=== PATIENT | female | born 1940 | race Caucasian/White ===

== ENCOUNTER 2018-12-17 13:11 | Inpatient (IN) | payer MEDICARE ==
[~2018-12-17] VITALS: Ht 167.6 cm; Wt 75.7 kg
[~2018-12-17 13:11] MED LIST: SYMBICORT 160-4.6 GM; Z.0.ACTONEL150 MG; Z.0.ALIGN4 MG; Z.0.ALLEGRA180 MG; Z.0.AMARYL2 MG; Z.0.FLOVENT DISKUS50; Z.0.LEXAPRO10 MG; Z.0.LIPITOR20 MG; Z.0.LISINOPRIL2.5 MG PO; Z.0.NAPROXEN500 MG; Z.0.PROTONIX40 MG; Z.0.XANAX0.5 MG; [UNRECOGNIZED DRUG - OTHER]; nexium
--- OUTSIDE RECORDS SUMMARY | 2018-12-17 13:14 | XMS REPORT ---
Author Author [facility] Address Unknown Phone Unavailable Care Team Providers Care Social Security Specialist Name Role Phone Unavailable Unavailable Payers Payer Name Policy Type Policy Number Effective Date Expiration Date Problems This patient has no known problems. Allergies, Adverse Reactions, Alerts Allergy Name Allergy Type Status Severity Reaction(s) Onset Date Inactive Date Treating Clinician Comments No Known Allergies DA Active U 2017-06-12 00:00:00 Medications This patient has no known medications. Results Test Description Test Time Test Comments Text Results Atomic Results Result Comments GLUBED 2018-11-04 11:23:00 GLUBED (test code=GLUBED) 126 mg/dL 74-106 Performed by certified commercial front load operator at [facility] - XR CHEST 2 [id number] 10:50:00 Name: AMANDA WILDER [facility] : 1940 Age/S:78 /F [address] [facility] Unit#:[id number] Loc: [place] [address] Phys: Michel Prado MD Dis Date: PHONE #: [phone] Status: REG ER FAX #: [phone] Exam Date: 11/04/2018 Reason: cough EXAMS: CPT CODE: [id number] XR CHEST 2 V 27508 HISTORY: Cough. COMPARISON: March 01, 2018. Extensive scarring and bullous changes with upper lobe predominance. Apical pleural thickening demonstrating no change. No acute infiltrates, effusion or congestion. Cardiac silhouette is mildly enlarged. DJD of the dorsal spine. IMPRESSION: No acute infiltrates, effusion or congestion. COPD and scarring is stable. at 1050 Reported and signed by: Fran Sharma M.D. CC: Michel Prado MD Technologist: Nancy Byrd Trnscrpt Data: 11/04/2018 (3610) [email or web address] Orig Print D/T: S: 11/04/2018 (5482) PAGE 1 Signed Report COMPREHENSIVE METABOLIC [id number] 10:19:00* Test Item Value Reference Range Comments SODIUM (test code=NA) 139 mmol/L 136-145 POTASSIUM (test code=K) 3.6 mmol/L 3.5-5.1 CHLORIDE (test code=CL) 102 mmol/L 101-109 CARBON DIOXIDE (test code=CO2) 27.3 mmol/L 21-32 ANION GAP (test code=GAP) 13 mmol/L 10-20 GLUCOSE (test code=GLU) 42 mg/dL 74-106 Results called to [id number] by LAUREANO 11/04/18 1016Critical results verified and read back by Nurse? Y BLOOD UREA NITROGEN (test code=BUN) 15 mg/dL 3-21 CREATININE (test code=CREAT) 1.01 mg/dL 0.55-1.3 BUN/CREATININE RATIO (test code=BUN/CREA) 14.9 10-20 TOTAL PROTEIN (test code=PROT) 6.6 g/dL 6.5-8.4 ALBUMIN (test code=ALB) 3.2 g/dL 3.4-4.8 GLOBULIN (test code=GLOB) 3.4 G/DL 1-10 ALBUMIN/GLOBULIN RATIO (test code=A/G) 0.94 RATIO 0.75-1.50 CALCIUM (test code=CA) 8.1 mg/dL 8.4-10.2 BILIRUBIN TOTAL (test code=BILT) 0.30 mg/dL 0.0-1.0 SGOT/AST (test code=AST) 19 U/L 6-32 SGPT/ALT (test code=ALT) 16 U/L 12-78 Note: Change in REFERENCE RANGE due to new reagent method. ALKALINE PHOSPHATASE TOTAL (test code=ALKP) 79 U/L 38-126 COMPREHENSIVE METABOLIC [id number] 10:16:00* Test Item Value Reference Range Comments SODIUM (test code=NA) 139 mmol/L 136-145 POTASSIUM (test code=K) 3.6 mmol/L 3.5-5.1 CHLORIDE (test code=CL) 102 mmol/L 101-109 CARBON DIOXIDE (test code=CO2) 27.3 mmol/L 21-32 ANION GAP (test code=GAP) 13 mmol/L 10-20 GLUCOSE (test code=GLU) 42 mg/dL 74-106 Results called to [id number] by LAUREANO 11/04/18 1016Critical results verified and read back by Nurse? Y BLOOD UREA NITROGEN (test code=BUN) 15 mg/dL 3-21 CREATININE (test code=CREAT) 1.01 mg/dL 0.55-1.3 BUN/CREATININE RATIO (test code=BUN/CREA) 14.9 10-20 TOTAL PROTEIN (test code=PROT) gram/dL 6.4-8.2 ALBUMIN (test code=ALB) g/dL 3.4-5.0 GLOBULIN (test code=GLOB) g/dL 2.7-4.2 ALBUMIN/GLOBULIN RATIO (test code=A/G) 0.75-1.50 CALCIUM (test code=CA) 8.1 mg/dL 8.4-10.2 BILIRUBIN TOTAL (test code=BILT) mg/dL 0.2-1.2 SGOT/AST (test code=AST) IUnit/L 15-37 SGPT/ALT (test code=ALT) U/L 10-69 ALKALINE PHOSPHATASE TOTAL (test code=ALKP) IUnit/L 45-117 CBC W/AUTO [id number] 10:02:00* Test Item Value Reference Range Comments WHITE BLOOD CELL (test code=WBC) 5.6 K/mm3 4.5-12.5 RED BLOOD CELL (test code=RBC) 3.69 mill/mm3 3.7-5.2 HEMOGLOBIN (test code=HGB) 11.3 gram/dL 11.5-15.5 HEMATOCRIT (test code=HCT) 35.1 % 36.0-46.0 MEAN CELL VOLUME (test code=MCV) 95.1 fL 80-98 MEAN CELL HGB (test code=MCH) 30.6 picogram 27.0-33.0 MEAN CELL HGB CONCETRATION (test code=MCHC) 32.2 gram/dL 33.0-36.0 RED CELL DISTRIBUTION WIDTH (test code=RDW) 13.0 % 11.6-16.2 RED CELL DISTRIBUTION WIDTH SD (test code=RDW-SD) 46.5 fL 37.0-51.0 PLATELET COUNT (test code=PLT) 199 K/mm3 150-450 MEAN PLATELET VOLUME (test code=MPV) 9.7 fL 6.7-11.0 NEUTROPHIL % (test code=NT%) 74.8 % 39.0-69.0 LYMPHOCYTE % (test code=LY%) 11.4 % 25.0-55.0 MONOCYTE % (test code=MO%) 12.3 % 0.0-10.0 EOSINOPHIL % (test code=EO%) 0.9 % 0.0-5.0 BASOPHIL % (test code=BA%) 0.4 % 0.0-1.0 NEUTROPHIL # (test code=NT#) 4.21 K/mm3 1.8-7.7 LYMPHOCYTE # (test code=LY#) 0.64 K/mm3 1.0-5.0 MONOCYTE # (test code=MO#) 0.69 K/mm3 0-0.8 EOSINOPHIL # (test code=EO#) 0.05 K/mm3 0.0-0.5 BASOPHIL # (test code=BA#) 0.02 K/mm3 0.0-0.2
--- OUTSIDE RECORDS SUMMARY | 2018-12-17 13:14 | XMS REPORT | Summary of Care ---
Author Author Sheri Cardenas Unknown Address [facility] Phone Unavailable Care Team Providers Care Engineer Sergeant Name Role Phone VAL SARAVIA M.D. Unavailable Unavailable ALISHA LÓPEZ MD Unavailable Unavailable Unavailable Unavailable Functional Status Name Dates Details Functional status health issues are not documented Status: Name Dates Details Cognitive status health issues are not documented Status: Problems Name Dates Details Diabetes (250.00, E11.9) Status: Active Hyperlipidemia (272.4, E78.5) Status: Active Hypertension (401.9, I10) Status: Active Leg weakness (729.89, R29.898) Status: Active PAD (peripheral artery disease) (443.9, I73.9) Status: Active Medications Name Dates Details Carafate 1 GM Oral Tablet TAKE 1 TABLET 4 TIMES DAILY. Active Chantix 1 MG Oral Tablet TAKE DIRECTED PER PACKAGE INSTRUCTIONS. * Refills: 0 Active Protonix 40 MG Oral Tablet Delayed Release TAKE 1 TABLET DAILY * Quantity: 30 Refills: 0 Active Albuterol 90 MCG/ACT AERS INHALE 1 TO 2 PUFFS EVERY 4 TO 6 HOURS NEEDED AND DIRECTED. * Refills: 0 Active Aspirin 81 MG TABS TAKE 1 TABLET DAILY. * Quantity: 60 Refills: 2 Active Atorvastatin Calcium 20 MG Oral Tablet TAKE 1 TABLET AT BEDTIME. * Quantity: 90 Refills: 0 Active Lexapro 10 MG Oral Tablet TAKE 1 TABLET DAILY. * Refills: 0 Active Glimepiride 1 MG Oral Tablet TAKE 1 TABLET TWICE DAILY. * Refills: 0 Active Lisinopril 2.5 MG Oral Tablet TAKE 1 TABLET BY MOUTH DAILY * Quantity: 90 Refills: 3 Active metFORMIN HCl - 500 MG Oral Tablet TAKE 1 TABLET DAILY * Refills: 0 Active Pioglitazone HCl - 15 MG Oral Tablet * Refills: 0 Active rOPINIRole HCl - 0.5 MG Oral Tablet * Refills: 0 Active Clopidogrel Bisulfate 75 MG Oral Tablet * Refills: 0 Active Gabapentin 100 MG TABS * Refills: 0 Active Benadryl 25 MG TABS * Refills: 0 Active Loratadine 10 MG Oral Tablet * Refills: 0 Active Allergies and Adverse Reactions Name Dates Details No Known Drug Allergies (Allergy) Status: Active Past Medical History Name Dates Details Hypertension (401.9, I10) Status: Active History of diabetes mellitus (V12.29, Z86.39) Status: Resolved History of hyperlipidemia (V12.29, Z86.39) Status: Resolved Procedures Procedure Dates Details History of Appendectomy Completed Immunization Name Dates Details Immunizations not documented Family History Name Dates Details Family history of Heart problem (429.9, I51.9) Status: Active Family history of cerebrovascular accident (CVA) (V17.1, Z82.3) Status: Active Family history of CAD (coronary artery disease) (414.00, I25.10) Status: Active Name Dates Details Family history of Heart problem (429.9, I51.9) Status: Active Name Dates Details Family history of cardiomegaly (V17.49, Z82.49) Status: Active Social History Name Dates Details - Status: Name Dates Details Former smoker Vital Signs Date Test Result Details 15-Aug-20188:54 BP Systolic 128 mm[Hg] Status: Comments: Location: LUE; Position: Sitting BP Diastolic 57 mm[Hg] Status: Comments: Location: LUE; Position: Sitting Height 66 in Status: Weight 174.5 lb Status: Body Mass Index Calculated 28.17 kg/m2 Status: Body Surface Area Calculated 1.89 m2 Status: Temperature 97.4 f Status: Comments: Method: Oral Heart Rate 65 /min Status: O2 SAT 97 % Status: Results Date Description Value Details Results not documented Plan of Care Name Dates Details Planned Observations Planned Goals not documented Interventions Provided Follow-ups/Referrals* PTO, FUNMI, Speech Therapy Referral; To Be Done: After 15Aug2018 Plan* PAD w/BLE weakness * * Patient clinical presentation does not indicate need for endovascular treatment. Recommend PT for build muscle strength and deconditioning * * Patient advised to contact IR is symptoms worsen Instructions Name Dates Details Instructions not documented Encounters Appointment; RADIOLOGY, PROVIDER Encounter Diagnosis: Problem not documented On: 15-Aug-2018 8:30
[2018-12-17] MEDS ORDERED: SODIUM CHLORIDE 0.9% 1000ML 1,000 ML IV STA (13:38)
[2018-12-17] MEDS ORDERED: SODIUM CHLORIDE 0.9% 1000ML 500 ML IV STA (13:38)
[2018-12-17 13:54] LABS: BASOPHILS % 0.7 % (0.0-1.0); EOSINOPHILS # (AUTO) 0.1 (0.0-0.4); EOSINOPHILS % 2.5 % (0.0-6.0); HEMATOCRIT 34.8 % (34.2-44.1); HEMOGLOBIN 11.4 g/dL (12.0-16.0); LYMPHOCYTES # (AUTO) 1.3 (1.0-3.2); LYMPHOCYTES % 29.3 % (18.0-39.1); MEAN CORPUSCULAR HEMOGLOBIN 31.1 pg (28-32); MEAN CORPUSCULAR HGB CONC 32.8 g/dL (31-35); MEAN CORPUSCULAR VOLUME 95.1 fL (81-99); MONOCYTES # (AUTO) 0.4 (0.2-0.8); MONOCYTES % 9.2 % (4.4-11.3); NEUTROPHILS # (AUTO) 2.5 (2.1-6.9); NEUTROPHILS % 58.3 % (38.7-80.0); PLATELET COUNT 262 x10e3/uL (140-360); RED BLOOD COUNT 3.66 x10e6/uL (3.6-5.1)
[2018-12-17] MEDS ORDERED: ONDANSETRON HCL INJ 2MG/ML 2ML 2 MG/ML VIAL IV PRN (14:00)
[2018-12-17] MEDS ORDERED: PANTOPRAZOLE 40 MG 10ML VIAL IV NR (14:00)
[2018-12-17] MEDS ORDERED: DEXTROSE 50% SYRINGE 50 ML IV PRN (14:00)
[2018-12-17 14:07] LABS: INR 1.01; PARTIAL THROMBOPLASTIN TIME 25.8 seconds (23.8-35.5); PROTHROMBIN TIME 13.8 seconds (11.9-14.5)
[2018-12-17 14:18] LABS: ALBUMIN 3.6 g/dL (3.5-5.0); ALBUMIN/GLOBULIN RATIO 1.2 (0.8-2.0); ANION GAP 11.9 mmol/L (8-16); CALCIUM 9.9 mg/dL (8.4-10.2); CREATININE, SERUM 1.14 mg/dL (0.57-1.11); MAGNESIUM 1.8 MG/DL (1.3-2.1); POTASSIUM 3.9 mmol/L (3.5-5.1)
--- NOTE | 2018-12-17 14:29 | Diagnostic Imaging Report ---
Chest, 1 view, 12/17/2018. History: Respiratory distress. Comparison: None available. Findings: The cardiomediastinal silhouette and pulmonary vasculature are within normal limits for a portable exam. There is biapical pleural thickening and upper lobe scarring. There is no focal consolidation or pleural effusion. There are no acute osseous or soft tissue abnormalities. Impression: No acute cardiopulmonary abnormality. Signed by: Carlos Kumar on 12/17/2018 2:26 PM
[2018-12-17 14:39] LABS: THYROID STIMULATING HORMONE 0.948 uIU/mL (0.350-4.940)
[2018-12-17] MEDS: FAMOTIDINE 20 MG/2 ML VIAL IV SCH (15:33)
[2018-12-17] MEDS: SODIUM CHLORIDE 0.9% 1000ML 1,000 ML IV SCH (15:33)
--- NOTE | 2018-12-17 15:33 | Diagnostic Imaging Report ---
CT of the chest, PE protocol, with contrast, 12/17/2018. History: Shortness of breath. Comparison: Chest x-ray from earlier today. CT chest 11/28/2011. Technique: Multidetector thin collimation CT scanning of the chest was performed from the level of the apices to the upper abdomen during the pulmonary arterial phase, after intravenous administration of contrast. Coronal and sagittal MIP reformations were obtained. RADIATION DOSE: Total DLP: 510 mGy*cm Dose modulation, iterative reconstruction, and/or weight based adjustment of the mA/kV was utilized to reduce the radiation dose to as low as reasonably achievable. Discussion: Chest: The pulmonary arteries are well-opacified without evidence of filling defect or vessel cut off. The main pulmonary artery is normal in size measuring 2 cm in diameter. The heart and aorta are normal in size. Thyroid is unremarkable. There is no axillary or mediastinal adenopathy. There is biapical pleural thickening and upper lobe scarring. Bilateral centrilobular and paraseptal emphysema also present with mild bilateral diffuse peripheral scarring. No evidence of consolidation, mass, or pleural effusion. Limited evaluation of the upper abdomen shows normal bilateral adrenal glands. Bones and soft tissues: No acute abnormality. Mild degenerative changes are present throughout the thoracic spine. IMPRESSION: 1. No evidence of acute pulmonary embolus. 2. Bilateral emphysematous disease and scarring are present. No acute pulmonary abnormality. Signed by: Carlos Kumar on 12/17/2018 3:30 PM
[2018-12-17] MEDS: INSULIN REGULAR, HUMAN 100 UNIT/1 ML 3ML VIAL SQ SCH ×2 (16:35→21:20)
[2018-12-17 17:03] LABS: BILIRUBIN,URINE NEGATIVE (NEGATIVE); CLARITY,URINE CLEAR (CLEAR); COLOR,URINE YELLOW (YELLOW); KETONES,URINE NEGATIVE (NEGATIVE); LEUKOCYTE ESTERASE ,URINE SMALL (NEGATIVE); NITRITE,URINE NEGATIVE (NEGATIVE); PROTEIN,URINE DIPSTICK NEGATIVE (NEGATIVE); URINE UROBILINOGEN 0.2 mg/dL (0.2 - 1)
[2018-12-17 17:15] LABS: AMORPHOUS SEDIMENT,URINE MODERATE (FEW); BACTERIA,URINE MODERATE /HPF; EPITHELIAL CELLS,URINE MODERATE /LPF; RBC,URINE 0-5 /HPF (0-5); RENAL EPITHELIAL CELLS,URINE FEW
[2018-12-17] MEDS: METHYLPREDNISOLONE SOD SUCC 40 MG/ML VIAL 1ML IV SCH (18:50)
[2018-12-17] MEDS ORDERED: TYLENOL WITH C1 EACH PO (19:31)
[2018-12-17] MEDS ORDERED: ATORVASTATIN CA20 MG PO (19:31)
[2018-12-17] MEDS ORDERED: GLIMEPIRIDE4 MG PO (19:31)
[2018-12-17] MEDS ORDERED: PANTOPRAZOLE SO40 MG PO (19:31)
[2018-12-17] MEDS ORDERED: GABAPENTIN100 MG PO (19:31)
[2018-12-17] MEDS ORDERED: DIPHENHYDRAMINE25 M2 PO (19:31)
[2018-12-17] MEDS ORDERED: ROPINIROLE HCL0.5 MG PO (19:31)
[2018-12-17] MEDS ORDERED: TRELEGY INH (19:31)
[2018-12-17] MEDS ORDERED: ESCITALOPRAM OX10 MG PO (19:31)
[2018-12-17] MEDS ORDERED: PIOGLITAZONE HC15 MG PO (19:31)
[2018-12-17] MEDS ORDERED: LORATADINE10 MG PO (19:31)
[2018-12-17] MEDS ORDERED: LISINOPRIL2.5 MG PO (19:31)
[2018-12-17] MEDS ORDERED: FERROUS SULFAT325 MG PO (19:31)
[2018-12-17] MEDS ORDERED: CLOPIDOGREL75 MG PO (19:31)
[2018-12-17] MEDS ORDERED: IOPAMIDOL 370 MG/ML 200 ML INFUS..BTL INJ ONE (19:54)
[2018-12-17] MEDS ORDERED: SODIUM CHLORIDE 0.9% 50ML 50 ML ONE (19:54)
[2018-12-17] MEDS: IPRATROPIUM BROMIDE 0.02% 2.5 ML NEB NEB PRN (20:25)
[2018-12-17] MEDS: LEVALBUTEROL HCL SOLN NEBU 1.25 MG/3 ML NEB INH SCH (20:25)
[2018-12-17] MEDS: ROPINIROLE HCL 1 MG TAB PO SCH (21:03)
[2018-12-17 21:26] VITALS: BP 133/53
--- NOTE | 2018-12-17 21:26 | NUR ---
RECEIVED PATIENT TO ROOM FROM ED VIA STRETCHER. PATIENT AMBULATED TO BED, STEADY GAIT NOTED. L AC 18G IV ASYMPTOMATIC, INTACT, AND PATENT, RUNNING 100 ML/HR OF NS. LUNG SOUNDS CLEAR. BOWEL SOUNDS ACTIVE. NO EDEMA NOTED. SKIN INTACT, EXCEPT SMALL SCABBED ABRASION TO L FOREARM, PRESENT ON ADMISSION, NO DRAINAGE NOTED. LAST BM YESTERDAY, 12/16/18. NO S&S OF DISTRESS NOTED. PATIENT ORIENTED TO ROOM AND CALL LIGHT SYSTEM. BED LOCKED IN LOWEST POSITION, SIDE RAILS UPX2, CALL LIGHT IN REACH.
[2018-12-17 21:47] LABS: CREATINE KINASE MB 1.3 ng/mL (0-5.0)
[2018-12-17 21:56] VITALS: BP 105/51
[2018-12-18] VITALS (8 sets, daily range): BP systolic 105–149; BP diastolic 53–65
[2018-12-18] MEDS: LEVALBUTEROL HCL SOLN NEBU 1.25 MG/3 ML NEB INH SCH ×4 (01:00→19:00)
[2018-12-18] MEDS: METHYLPREDNISOLONE SOD SUCC 40 MG/ML VIAL 1ML IV SCH ×3 (01:51→16:24)
[2018-12-18] MEDS: FAMOTIDINE 20 MG/2 ML VIAL IV SCH (01:52)
[2018-12-18] MEDS: SODIUM CHLORIDE 0.9% 1000ML 1,000 ML IV SCH ×2 (05:00→15:45)
[2018-12-18 05:38] LABS: BASOPHILS % 0.3 % (0.0-1.0); HEMATOCRIT 32.2 % (34.2-44.1); HEMOGLOBIN 10.3 g/dL (12.0-16.0); LYMPHOCYTES # (AUTO) 0.4 (1.0-3.2); LYMPHOCYTES % 13.5 % (18.0-39.1); MEAN CORPUSCULAR HEMOGLOBIN 30.3 pg (28-32); MEAN CORPUSCULAR VOLUME 94.7 fL (81-99); MONOCYTES % 1.2 % (4.4-11.3); NEUTROPHILS # (AUTO) 2.7 (2.1-6.9); NEUTROPHILS % 84.4 % (38.7-80.0); PLATELET COUNT 213 x10e3/uL (140-360)
[2018-12-18 06:07] LABS: CREATINE KINASE 66 IU/L (29-168)
--- NOTE | 2018-12-18 06:12 | NUR ---
PATIENT RESTING IN BED, BREATHING EVEN AND NON-LABORED. PATIENT REPORTS NO SOB ON EXERTION SINCE ADMISSION. NO PAIN REPORTED. BED LOCKED IN LOWEST POSITION, SIDE RAILS UPX2, BED ALARM ON, CALL LIGHT IN REACH.
[2018-12-18 06:26] LABS: LYMPHOCYTES % (MANUAL) 12 % (19-48); MONOCYTES % (MANUAL) 2 % (3.4-9.0); NEUTROPHILS % (MANUAL) 86 % (40-74); PLATELET ESTIMATE ADEQUATE; RBC MORPHOLOGY COMMENT NORMAL
[2018-12-18 06:32] LABS: ALBUMIN 3.2 g/dL (3.5-5.0); ALBUMIN/GLOBULIN RATIO 1.2 (0.8-2.0); ANION GAP 14.6 mmol/L (8-16); CALCIUM 9.6 mg/dL (8.4-10.2); CHOL/HDL RATIO 3.9 (3.0-3.6); CREATININE, SERUM 1.04 mg/dL (0.57-1.11); MAGNESIUM 1.8 MG/DL (1.3-2.1); PHOSPHORUS 2.6 MG/DL (2.3-4.7); POTASSIUM 4.6 mmol/L (3.5-5.1)
[2018-12-18] MEDS: IPRATROPIUM BROMIDE 0.02% 2.5 ML NEB NEB PRN (07:10)
--- NOTE | 2018-12-18 07:17 | NUR ---
RECEIVED PATIENT AWAKE WATCHING TELEVISION NO SIGNS OF DISTRESS. BED LOW, WHEELS LOCKED, SIDE RAILS X2. CALL LIGHT IN REACH WILL CONTINUE TO MONITOR PATIENT.
[2018-12-18] MEDS: INSULIN REGULAR, HUMAN 100 UNIT/1 ML 3ML VIAL SQ SCH ×4 (08:32→20:10)
[2018-12-18] MEDS ORDERED: ACETAMINOPHEN/CODEINE 300MG - 30MG TAB PO PRN (10:15)
[2018-12-18] MEDS ORDERED: ZOLPIDEM TARTRATE 5 MG TAB PO PRN (10:30)
[2018-12-18] MEDS: CEFEPIME 1GM/NS 0.9% 50 ML 50 ML IV SCH ×2 (11:19→22:25)
[2018-12-18] MEDS ORDERED: FAMOTIDINE 20 MG TAB PO SCH (14:00)
[2018-12-18] MEDS: METRONIDAZOLE 500 MG TAB PO SCH ×2 (14:23→22:25)
[2018-12-18] MEDS: GABAPENTIN 100 MG CAP PO SCH (16:24)
[2018-12-18] MEDS: ONDANSETRON HCL 4 MG ORAL DISINTEGRATING TAB PO PRN ×2 (16:24→20:05)
[2018-12-18] MEDS: PANTOPRAZOLE SOD 40 MG TABEC PO SCH (16:24)
--- NOTE | 2018-12-18 17:22 | History and Physical ---
CHIEF COMPLAINT: The patient is a 78-year-old pleasant patient of mine, presented to me with a complaint of persistent shortness of breath, cough, and wheezing and now started having diarrhea and feeling very dizzy and lightheaded. HISTORY OF PRESENT ILLNESS: Ms. Raquel Mcfadden is a 78-year-old female patient with history of COPD, emphysema, diabetes mellitus, hypertension, and hyperlipidemia, presented as an outpatient with shortness of breath, cough, and wheezing. The patient was treated with multiple rounds of antibiotics, steroids, nebulizers, frequent bronchodilators, and Mucinex, but the patient had no significant recovery and the patient was continued to have severe problem with shortness of breath, cough, and wheezing. Now, the patient started having diarrhea and the patient was also feeling very dizzy and lightheaded and very weak. On outpatient evaluation, the patient was orthostatic, blood pressure was 90/61 sitting down and standing was 80/50 with heart rate going up to 90 and O2 saturation was 90. ALLERGIES: THE PATIENT IS ALLERGIC TO LEVAQUIN. CURRENT MEDICATIONS: See from the list. REVIEW OF SYSTEMS: Detailed review of system examination was done. Multisystem examination was done. PAST MEDICAL HISTORY: Diabetes mellitus, hypertension, and hyperlipidemia. PAST SURGICAL HISTORY: Appendectomy. FAMILY HISTORY: Diabetes mellitus and hypertension. SOCIAL HISTORY: The patient is a former smoker. She had quit for five years and denies smoking now and alcohol. PHYSICAL EXAMINATION: GENERA: She is an elderly female patient, lying in the bed. VITAL SIGNS: Temperature 99, pulse rate 80, respiratory rate 20, and blood pressure 160/70. HEENT: Normocephalic and atraumatic. LUNGS: Bilateral equal air entry. Rales and rhonchi present. HEART: S1, S2 regular. Systolic murmur present. ABDOMEN: Soft. Bowel sounds present. NEUROLOGIC: Nonfocal neurological deficit. ADMITTING IMPRESSION/DIAGNOSES: 1. Community-acquired pneumonia and chronic obstructive pulmonary disease with exacerbation and advanced emphysema and failed multiple outpatient treatment. 2. Diarrhea dehydration. 3. Diabetes mellitus. 4. Coronary artery disease. 5. Hypertensive heart disease. 6. Arthritis. 7. Anemia. PLAN: The patient will be admitted with the above diagnoses. The patient had a CT scan of the chest was done. We will obtain Pulmonary consultation with Dr. Phelps. We will do ABG. We will do stool for C difficile. We will give the patient IV antibiotics, IV Solu-Medrol, and IV fluids. We will treat the patient with metronidazole and cefepime . MD LETICIA Cain/KILO /[id number]
[2018-12-18] MEDS: ROPINIROLE HCL 1 MG TAB PO SCH (18:27)
[2018-12-18 18:34] LABS: ABG HCO3 20 mmol/L (23-28); ABG PCO2 33 mmHg (41-51); ABG PH 7.38 (7.31-7.41); ABG PO2 74 mmHg (80-105)
--- NOTE | 2018-12-18 18:41 | NUR ---
Nutrition Intervention Note RD Recommendation(s) for Physician: -Continue diet as ordered -Rec Glucerna once a day to increase protein-calorie intake -The patient meets criteria for MODERATE protein-calorie malnutrition. Plan of Care: RD following, monitoring for tolerance and adequacy, ONS rec Nutrition reason for involvement: Nutrition risk trigger MST RD Assessment 12/18 78yo F, who was admitted for dyspnea and weakness. Visited pt in the room. Pt reported decreased oral intake due to recent dental works on July and September 2018. Pt reported of 15lbs weight loss since then. UBW ~170lbs. PCT recorded 100% meal intake since admission. Pt complained of some nausea but no vomiting episode noted. LBM 12/18. Pt reported chewing difficulty but refused texture modification. No swallowing issue. Pt drinks Boost x 1 daily at home. Will continue to monitor and follow. Principal Problems/Diagnoses: Community-acquired pneumonia and chronic obstructive pulmonary disease with exacerbation and advanced emphysema and failed multiple outpatient treatment. PMH: COPD, emphysema, diabetes mellitus, hypertension, and hyperlipidemia GI: abdomen soft, non-tender, round, flatus present Skin: WNL Labs: (12/18) Glucose 136 H Meds: zofran, protonix, Solu-Medrol, NaCl, pepcid, abx Ht: 66in Wt: 161lb BMI: 26.0kg/m2 IBW: 130lb +/- 10% Malnutrition Evaluation (12/18) The patient meets criteria for MODERATE protein-calorie malnutrition. Energy intake: <75% of estimated energy requirements for >3 months Weight loss: >7.5% in 3 months (Acute) Fat loss: None Muscle loss: None Supporting Evidence: Fluid accumulation: None Functional Status: Weakness Nutrition Prescription (Diet Order): cardiac/ ADA Estimated Nutritional Needs: Calories: 1314 1606kcal(18-22kcal/kg/d) Weight used: CBW Protein : 73 110g (1-1.5g/kg/d) Weight used: CBW Diet Adequacy: Not meeting calorie needs, Not meeting protein needs Diet Education Needs Assessment: Diet education not indicated. Nutrition Care Level: mod Nutrition Diagnosis: Moderate malnutrition related to inadequate oral intake as evidenced by decreased PO intake for months due to recent dental work and some weight loss. Goal: Patient will meet 75-100% of estimated needs by follow up Progress: Progressing Interventions: Modified diet, Commercial beverage Monitoring/Evaluation: Total energy intake, Total protein intake, Modified diet, Liquid supplement, Weight change Signed: Funmi Longoria, MS, RD, LD
--- NOTE | 2018-12-18 18:45 | NUR ---
Received bedside report from day RN. The patient is sitting up on the bed, not in distress. Family member at bedside. Call light within reach, bed height low, side rails up x2 and wheels lock.
[2018-12-18] MEDS: DIPHENHYDRAMINE HCL 25 MG CAP PO SCH (20:09)
[2018-12-19] VITALS (8 sets, daily range): BP systolic 98–134; BP diastolic 46–62
[2018-12-19] MEDS: CEFEPIME 1GM/NS 0.9% 50 ML 50 ML IV SCH ×2 (00:40→12:49)
[2018-12-19] MEDS: METHYLPREDNISOLONE SOD SUCC 40 MG/ML VIAL 1ML IV SCH ×3 (01:54→21:33)
[2018-12-19] MEDS: SODIUM CHLORIDE 0.9% 1000ML 1,000 ML IV SCH (01:54)
--- NOTE | 2018-12-19 02:29 | Consultation ---
DATE OF CONSULTATION: Pulmonary consultation. REASON FOR THE CONSULT: Shortness of breath and chronic obstructive pulmonary disease. HISTORY OF PRESENT ILLNESS: Ms. Mcfadden is a 78-year-old female. She presented to the emergency room with complains of shortness of breath. The patient was seen by Dr. Phelps a few times for possibility of pneumonia and shortness of breath. She has received a shorts of antibiotics and steroids in the office with no improvement. She smoked for 50 years, two packs per day and quit three years ago. She denies any alcohol use. In the emergency room, the patient received nebulizer treatment. She was admitted for chronic obstructive pulmonary disease exacerbation. She underwent CTA of the chest, which did not show any evidence of PE and shows emphysema. REVIEW OF SYSTEMS: GENERAL: Denies any fever or chills. HEAD: Denies any head trauma. ENT: Denies any earaches. CARDIOVASCULAR SYSTEM: Denies any chest pain. RESPIRATORY: Shortness of breath. Rest of the review of systems are negative except as in the HPI. PAST MEDICAL HISTORY: Hypertension and diabetes. PAST SURGICAL HISTORY: None. FAMILY AND SOCIAL HISTORY: Currently, she does not smoke. Ex-smoker, smoked for 50 years, two packs per day. Denies any alcohol use. PHYSICAL EXAMINATION: VITAL SIGNS: Temperature 97.9, pulse of 100, blood pressure 125/62, and respiratory rate of 18. HEENT: Head atraumatic and normocephalic. NECK: Supple. CHEST: Decreased air entry bilaterally. HEART: S1 and S2 audible. ABDOMEN: Soft. EXTREMITIES: No pedal edema. NEUROLOGIC: Awake and alert. LABORATORY DATA: White count of 3.25, hemoglobin 10.3, and platelets 213. Chemistry is within normal limits. CT of the chest, I reviewed the images showing emphysema and no PE. ASSESSMENT AND PLAN: Ms. Mcfadden is a 78-year-old female admitted with chronic obstructive pulmonary disease exacerbation. I agree with IV steroids, oxygen, nebulizer treatment. Oxygen as needed to keep the O2 saturation more than or equal to 92%. I thank Dr. Phelps for this consult. MD ALEXANDER Cruz/KILO /[id number]
[2018-12-19] MEDS: METRONIDAZOLE 500 MG TAB PO SCH ×3 (05:52→21:33)
--- NOTE | 2018-12-19 05:52 | NUR ---
The patient reported mild nausea after having dinner and was given Zofran tablet. The patient reported no further nausea and is doing well taking the Flagyl tablet. Continue to monitor the patient for nausea, vomiting or diarrhea
[2018-12-19] MEDS: FLUTICASONE FUROATE INH SCH (06:00)
[2018-12-19] MEDS: VILANTEROL INH SCH (06:00)
[2018-12-19] MEDS: UMECLIDINIUM INH SCH (06:00)
[2018-12-19 06:45] LABS: BASOPHILS % 0.2 % (0.0-1.0); HEMATOCRIT 28.7 % (34.2-44.1); HEMOGLOBIN 9.1 g/dL (12.0-16.0); LYMPHOCYTES # (AUTO) 0.4 (1.0-3.2); LYMPHOCYTES % 8.8 % (18.0-39.1); MEAN CORPUSCULAR HEMOGLOBIN 30.4 pg (28-32); MEAN CORPUSCULAR HGB CONC 31.7 g/dL (31-35); MONOCYTES # (AUTO) 0.2 (0.2-0.8); MONOCYTES % 3.6 % (4.4-11.3); NEUTROPHILS # (AUTO) 4.3 (2.1-6.9); NEUTROPHILS % 86.8 % (38.7-80.0); PLATELET COUNT 209 x10e3/uL (140-360); RED BLOOD COUNT 2.99 x10e6/uL (3.6-5.1); RED CELL DISTRIBUTION WIDTH 14.5 % (11.7-14.4)
[2018-12-19] MEDS: LEVALBUTEROL HCL SOLN NEBU 1.25 MG/3 ML NEB INH SCH ×3 (07:05→19:37)
--- NOTE | 2018-12-19 07:09 | NUR ---
RECEIVED PATIENT RESTING IN BED NO S/S OF DISTRESS. BED LOW, WHEELS LOCKED, SIDE RAILS X2. CALL LIGHT IN REACH WILL CONTINUE TO MONITOR PATIENT.
[2018-12-19 07:14] LABS: ALBUMIN 2.9 g/dL (3.5-5.0); ALBUMIN/GLOBULIN RATIO 1.4 (0.8-2.0); ANION GAP 11.3 mmol/L (8-16); CALCIUM 9.3 mg/dL (8.4-10.2); CREATININE, SERUM 0.98 mg/dL (0.57-1.11); POTASSIUM 4.3 mmol/L (3.5-5.1)
[2018-12-19 08:39] LABS: LYMPHOCYTES % (MANUAL) 9 % (19-48); MONOCYTES % (MANUAL) 4 % (3.4-9.0); NEUTROPHILS % (MANUAL) 87 % (40-74); PLATELET ESTIMATE ADEQUATE; RBC MORPHOLOGY COMMENT NORMAL
[2018-12-19] MEDS ORDERED: DOCUSATE SODIUM 100 MG CAP PO PRN (08:45)
--- NOTE | 2018-12-19 08:46 | NUR ---
SPOKE WITH PATIENT ABOUT SHOWER CHAIR ORDER, SHE STATES SHE WOULD PREFER TO ORDER FROM [facility], SHE ONLY WANTS THE SHOWER CHAIR AND NOT A 3 IN 1.
[2018-12-19] MEDS: ROPINIROLE HCL 0.25 MG TAB PO SCH (08:56)
[2018-12-19] MEDS ORDERED: METHYLPREDNISOLONE SOD SUCC 40 MG/ML VIAL 1ML IV SCH (09:00)
[2018-12-19] MEDS: FAMOTIDINE 20 MG TAB PO SCH ×2 (09:18→21:33)
[2018-12-19] MEDS: ESCITALOPRAM OXALATE 10 MG TAB PO SCH (09:18)
[2018-12-19] MEDS: ATORVASTATIN 20 MG TAB PO SCH (09:18)
[2018-12-19] MEDS: LORATADINE 10 MG TAB PO SCH (09:18)
[2018-12-19] MEDS: FERROUS SULFATE 325 MG TAB PO SCH (09:18)
[2018-12-19] MEDS: GLIMEPIRIDE 2 MG TAB PO SCH (09:18)
[2018-12-19] MEDS: GABAPENTIN 100 MG CAP PO SCH ×2 (09:18→17:23)
[2018-12-19] MEDS: PIOGLITAZONE HCL 15 MG TAB PO SCH (09:18)
[2018-12-19] MEDS: PANTOPRAZOLE SOD 40 MG TABEC PO SCH ×2 (09:18→17:23)
[2018-12-19] MEDS: CLOPIDOGREL BISULFATE 75 MG TAB PO SCH (09:18)
[2018-12-19] MEDS: LISINOPRIL 2.5 MG TAB PO SCH (09:19)
[2018-12-19] MEDS: INSULIN REGULAR, HUMAN 100 UNIT/1 ML 3ML VIAL SQ SCH ×4 (09:20→21:00)
--- NOTE | 2018-12-19 10:32 | NUR ---
PATIENT STATED SHE HAD CHEST DISCOMFORT. STAT EKG PLACED PER PROTOCOL. VS: BLOOD PRESSURE 127/58 HEART RATE 107. EKG BEING DONE AT BEDSIDE AT THIS TIME.
--- NOTE | 2018-12-19 12:45 | NUR ---
LEFT AC IV LEAKING. REMOVED IV, CATHETER TIP INTACT AND PRESSURE DRESSING APPLIED. NEW IV TO RIGHT AC 20 GAUGE. NS INFUSING AT 50 CC/HR.
--- NOTE | 2018-12-19 16:15 | NUR ---
PATIENT BLOOD SUGAR 46, NO LOSS OF CONSCIOUSNESS. PATIENT GIVEN 60 CC APPLE JUICE AND SANDRA CRACKERS. WILL CONTINUE TO MONITOR PATIENT.
--- NOTE | 2018-12-19 16:54 | NUR ---
BLOOD SUGAR RECHECKED 96. WILL CONTINUE TO MONITOR PATIENT.
--- NOTE | 2018-12-19 19:35 | NUR ---
patient wanting to leave AMA. warehouse man spoke with patient. patient ok with remaining hospitalized.
[2018-12-19] MEDS: ROPINIROLE HCL 1 MG TAB PO SCH (21:33)
[2018-12-19] MEDS: DIPHENHYDRAMINE HCL 25 MG CAP PO SCH (21:33)
[2018-12-20] VITALS: BP 99/47
[2018-12-20] MEDS: LEVALBUTEROL HCL SOLN NEBU 1.25 MG/3 ML NEB INH SCH ×2 (01:02→07:10)
[2018-12-20] MEDS: SODIUM CHLORIDE 0.9% 1000ML 1,000 ML IV SCH (02:19)
[2018-12-20 04:00] VITALS: BP 97/50
[2018-12-20] MEDS: UMECLIDINIUM INH SCH (06:00)
[2018-12-20] MEDS: VILANTEROL INH SCH (06:00)
[2018-12-20] MEDS: FLUTICASONE FUROATE INH SCH (06:00)
[2018-12-20 06:06] LABS: HEMATOCRIT 27.5 % (34.2-44.1); HEMOGLOBIN 8.9 g/dL (12.0-16.0); LYMPHOCYTES # (AUTO) 0.4 (1.0-3.2); LYMPHOCYTES % 8.6 % (18.0-39.1); MEAN CORPUSCULAR HEMOGLOBIN 30.7 pg (28-32); MEAN CORPUSCULAR HGB CONC 32.4 g/dL (31-35); MEAN CORPUSCULAR VOLUME 94.8 fL (81-99); MONOCYTES # (AUTO) 0.2 (0.2-0.8); MONOCYTES % 4.9 % (4.4-11.3); NEUTROPHILS # (AUTO) 4.2 (2.1-6.9); NEUTROPHILS % 86.1 % (38.7-80.0); PLATELET COUNT 213 x10e3/uL (140-360); RED CELL DISTRIBUTION WIDTH 14.7 % (11.7-14.4); RETICULOCYTE % 1.3 % (0.8-2.2)
[2018-12-20] MEDS: METRONIDAZOLE 500 MG TAB PO SCH ×2 (06:16→14:43)
[2018-12-20 06:33] LABS: ALBUMIN 2.8 g/dL (3.5-5.0); ALBUMIN/GLOBULIN RATIO 1.2 (0.8-2.0); ANION GAP 8.7 mmol/L (8-16); CALCIUM 8.8 mg/dL (8.4-10.2); CREATININE, SERUM 1.02 mg/dL (0.57-1.11); POTASSIUM 4.7 mmol/L (3.5-5.1)
[2018-12-20 06:59] LABS: FERRITIN 38.45 ng/mL (4.63-204.00)
--- NOTE | 2018-12-20 07:03 | NUR ---
received report from assistant casino shift manager RN, pt resting in semi fowlers position in bed, awake, alert, no distress noted, call light within reach, will continue to monitor
[2018-12-20] MEDS: INSULIN REGULAR, HUMAN 100 UNIT/1 ML 3ML VIAL SQ SCH ×4 (07:30→17:34)
[2018-12-20 08:37] VITALS: BP 115/73
[2018-12-20 08:47] VITALS: BP 115/73
[2018-12-20] MEDS: ROPINIROLE HCL 0.25 MG TAB PO SCH (09:00)
[2018-12-20] MEDS: POLYETHYLENE GLYCOL 3350 17 GM PACK PO SCH ×2 (09:00→16:32)
[2018-12-20] MEDS: METHYLPREDNISOLONE SOD SUCC 40 MG/ML VIAL 1ML IV SCH (09:38)
[2018-12-20] MEDS: FERROUS SULFATE 325 MG TAB PO SCH (09:44)
[2018-12-20] MEDS: LORATADINE 10 MG TAB PO SCH (09:44)
[2018-12-20] MEDS: PIOGLITAZONE HCL 15 MG TAB PO SCH (09:44)
[2018-12-20] MEDS: PANTOPRAZOLE SOD 40 MG TABEC PO SCH ×2 (09:44→17:34)
[2018-12-20] MEDS: GLIMEPIRIDE 2 MG TAB PO SCH (09:44)
[2018-12-20] MEDS: GABAPENTIN 100 MG CAP PO SCH ×2 (09:45→17:34)
[2018-12-20] MEDS: ESCITALOPRAM OXALATE 10 MG TAB PO SCH (09:45)
[2018-12-20] MEDS: FAMOTIDINE 20 MG TAB PO SCH (09:45)
[2018-12-20] MEDS: ATORVASTATIN 20 MG TAB PO SCH (09:45)
[2018-12-20] MEDS: CLOPIDOGREL BISULFATE 75 MG TAB PO SCH (09:45)
[2018-12-20] MEDS: LISINOPRIL 2.5 MG TAB PO SCH (09:45)
[2018-12-20 10:30] LABS: LYMPHOCYTES % (MANUAL) 8 % (19-48); MONOCYTES % (MANUAL) 4 % (3.4-9.0); NEUTROPHILS % (MANUAL) 88 % (40-74); PLATELET ESTIMATE ADEQUATE; RBC MORPHOLOGY COMMENT NORMAL
[2018-12-20] MEDS: CEFEPIME 1GM/NS 0.9% 50 ML 50 ML IV SCH (11:45)
--- NOTE | 2018-12-20 12:01 | NUR ---
EDUCATED ABOUT IMM, SIGNED, FILED IN CHART, WITH COPY LEFT WITH FAMILY AT BEDSIDE.
[2018-12-20 12:47] VITALS: BP 121/55
--- NOTE | 2018-12-20 15:16 | Diagnostic Imaging Report ---
Abdominal ultrasound Clinical History: Abdominal pain Discussion: Sonographic evaluation of the the abdomen is performed. The liver has normal size and measures 12.3 cm in length. The liver echotexture is normal, without focal mass. There is no intra or extrahepatic biliary dilatation. The common bile duct measures 4 mm. The gallbladder has normal appearance, without wall thickening, stones, or pericholecystic fluid. The main portal vein diameter is normal, measuring 10 mm. The pancreatic head, body, and proximal tail demonstrate no abnormality. There is no ascites. The right and the left kidney measure 10.3 and 9.5 cm in length respectively and are normal in size. There is no renal mass, hydronephrosis, or shadowing renal calculus. The spleen measures 8.6 cm in length and is normal in echotexture. Segments of the inferior vena cava and aorta visualized demonstrate no abnormality. Impression: Normal abdominal ultrasound. Signed by: Dr. Wilver Guzman MD on 12/20/2018 3:12 PM
[2018-12-20] MEDS ORDERED: POLYETHYLENE GLYCOL 3350 17 GM PACK PO SCH (17:00)
[2018-12-20 17:52] VITALS: BP 121/56
--- NOTE | 2018-12-20 18:07 | NUR ---
LEFT FA 20G INFILTRATED, LEFT WRIST 20G X 1 STICK PT TOLERATED WELL, IVF RECONNECTED WILL CONTINUE TO MONITOR
[2018-12-20] MEDS ORDERED: ACETAMINOPHEN/CODEINE 300MG - 30MG TAB PO PRN (19:15)
--- NOTE | 2018-12-21 01:01 | History and Physical ---
CONSULTING PHYSICIAN: Dereck Malave MD. REASON FOR CONSULT: Unexplained anemia. HISTORY OF PRESENT ILLNESS: [age] white female. She is a chronic active smoker. She got admitted with COPD exacerbation. GI has been consulted because her hemoglobin was noted at 11.4 on admission, which subsequently dropped down to 8.9 today. No gross GI bleeding. Stool occult is heme-negative. The patient denies any GI symptoms. She has had upper endoscopy as well as colonoscopy for the reason unclear to her. She stated that it was done within three years, most likely by Dr. Stern. She is not aware of the finding of the procedure. The patient denies any history of peptic ulcer disease. No abdominal pain. No dark stool. She is not on any anticoagulants. COPD exacerbation has also resolved. REVIEW OF SYSTEMS: Twelve point system reviewed, symptomatology is limited as per HPI, most of the symptoms were limited to respiratory system. PAST MEDICAL HISTORY: Type 2 diabetes and hypertension. PAST SURGICAL HISTORY: None. EGD and colonoscopy in the past. FAMILY HISTORY: Noncontributory. SOCIAL HISTORY: Chronic smoker. Seldom drinks alcohol. Never used any illicit drugs. ALLERGIES: LEVOFLOXACIN. HOME MEDICATIONS: Acetaminophen with codeine, atorvastatin, clopidogrel, diphenhydramine, citalopram, ferrous sulfate, gabapentin, glimepiride, lisinopril, loratadine, pantoprazole, pioglitazone, and ropinirole. Inpatient medication list was reviewed as per JUN. PHYSICAL EXAMINATION: VITAL SIGNS: Temperature 97, pulse 97, respirations 18, blood pressure 121/56, oxygen saturation 97% on 2 L of nasal cannula. GENERAL: Not in any acute distress. HEENT: Oral mucosa is moist. Anicteric sclerae. CVS: S1, S2 regular. LUNGS: Bilaterally, occasional scattered rhonchi. No rales. ABDOMEN: Soft, protuberant belly, nondistended, nontender. No palpable mass or hernia. Positive bowel sounds. EXTREMITIES: Warm. No leg edema. LABORATORY DATA: Hemoglobin dropped down from 11.4 on 12/17/2018 to 8.9 on 12/20/2018. WBC 4.87, platelet count 213 with MCV 94.8. Electrolytes normal. BUN 15, creatinine 1.02. Liver enzymes normal. Coagulation profile normal. Urinalysis showed 6-10 wbc's per high-power field. Stool guaiac is negative, stool for C. difficile negative. IMPRESSION: Anemia, iron profile is not suggestive of iron deficiency, ferritin level was noted 38.45 and TIBC 269 and her stool is heme negative. Therefore, this is a most likely anemia of chronic disease. The patient can be discharged from GI standpoint. I have given the patient my business card to follow up with me in my office in 1 to [address] Malave for allowing me to participate in the care of this patient. Martin Cm MD SA/KILO /[id number]
== END 2018-12-20 19:00 | disposition home or self-care (01) | DRG 190 ==
LOC: ER 13:11 → ERHOLD 13:56 → MED/SURG 21:27
PROVIDERS: ADMIT Internal Medicine; ATTEND Internal Medicine
DX: J43.9 Emphysema, unspecified (principal); J18.9 Pneumonia, unspecified organism; F17.210 Nicotine dependence, cigarettes, uncomplicated; D63.8 Anemia in other chronic diseases classified elsewhere; E78.5 Hyperlipidemia, unspecified; R19.7 Diarrhea, unspecified; E86.0 Dehydration; I11.0 Hypertensive heart disease with heart failure; I50.9 Heart failure, unspecified; M19.90 Unspecified osteoarthritis, unspecified site
CPT/HCPCS: 36415; 36600; 71045; 71260; 76700; 80053; 80061; 81001; 82270; 82550; 82553; 82728; 82805; 82948; 83540; 83605; 83690; 83735; 83880; 84100; 84443; 84466; 84484; 85025; 85045; 85610; 85730; 87040; 87086; 87493; 93005; 93306; 94640; 99284; J0692; J1817; J2920; J7030; Q0162; Q9967

== ENCOUNTER → 2019-01-14 | Outpatient (CLI) | payer MEDICARE ==
[~2019-01-14] MED LIST changes: +ALBUTEROL SULF 0.083% NEB SOLN 3 ML NEB ONE; +ATORVASTATIN CA20 MG PO; +CLOPIDOGREL75 MG PO; +DIPHENHYDRAMINE25 M2 PO; +ESCITALOPRAM OX10 MG PO; +FERROUS SULFAT325 MG PO; +GABAPENTIN100 MG PO; +GLIMEPIRIDE4 MG PO; +LISINOPRIL2.5 MG PO; +LORATADINE10 MG PO; +PANTOPRAZOLE SO40 MG PO; +PIOGLITAZONE HC15 MG PO; +ROPINIROLE HCL0.5 MG PO; +TRELEGY INH; +TYLENOL WITH C1 EACH PO
== END ==
LOC: RESP 12:36
PROVIDERS: ATTEND Internal Medicine
DX: Z87.891 Personal history of nicotine dependence (principal)
CPT/HCPCS: 94060; 94640; 94727; 94729

== ENCOUNTER 2019-06-05 09:12 | Inpatient (IN) | payer MEDICARE ==
[~2019-06-05] VITALS: Ht 167.6 cm; Wt 75.7 kg
[~2019-06-05 09:12] MED LIST changes: -ALBUTEROL SULF 0.083% NEB SOLN 3 ML NEB ONE
[2019-06-05] MEDS ORDERED: PANTOPRAZOLE 40 MG 10ML VIAL IV STA (09:39)
[2019-06-05] MEDS ORDERED: SODIUM CHLORIDE 0.9% 1000ML 1,000 ML IV STA (09:39)
[2019-06-05] MEDS ORDERED: ONDANSETRON HCL INJ 2MG/ML 2ML 2 MG/ML VIAL IV STA (09:39)
[2019-06-05 10:43] LABS: BASOPHILS % 0.4 % (0.0-1.0); EOSINOPHILS % 0.3 % (0.0-6.0); HEMATOCRIT 34.2 % (34.2-44.1); HEMOGLOBIN 10.9 g/dL (12.0-16.0); LYMPHOCYTES # (AUTO) 0.5 (1.0-3.2); LYMPHOCYTES % 7.1 % (18.0-39.1); MEAN CORPUSCULAR HEMOGLOBIN 31.7 pg (28-32); MEAN CORPUSCULAR HGB CONC 31.9 g/dL (31-35); MEAN CORPUSCULAR VOLUME 99.4 fL (81-99); MONOCYTES # (AUTO) 0.4 (0.2-0.8); MONOCYTES % 6.1 % (4.4-11.3); NEUTROPHILS # (AUTO) 5.9 (2.1-6.9); NEUTROPHILS % 85.7 % (38.7-80.0); PLATELET COUNT 209 x10e3/uL (140-360); RED BLOOD COUNT 3.44 x10e6/uL (3.6-5.1); RED CELL DISTRIBUTION WIDTH 14.4 % (11.7-14.4)
--- NOTE | 2019-06-05 10:52 | Diagnostic Imaging Report ---
EXAMINATION: CHEST SINGLE (NOT PORTABLE) INDICATION: Fall COMPARISON: Chest radiograph 12/17/2018 FINDINGS: LINES/TUBES:EKG leads overlie the chest. LUNGS:The lungs are hyperinflated. Bilateral upper lobe predominant emphysematous changes. Biapical pleural parenchymal thickening/scarring. There is perihilar fullness and indistinctness of the pulmonary vasculature. PLEURA:No pleural effusion or pneumothorax. MEDIASTINUM:The cardiomediastinal silhouette appears normal in size and shape. Atherosclerotic calcifications of the thoracic aorta. BONES/SOFT TISSUES:No acute osseous injury. ABDOMEN:No free air under the diaphragm. IMPRESSION: Hyperinflated lungs with emphysematous changes. Mild pulmonary and her social edema. No radiographic evidence of acute traumatic injury to the thorax. Signed by: Marita Bronson MD on 06/05/2019 10:50 AM
[2019-06-05 10:55] LABS: INR 1.01; PROTHROMBIN TIME 13.9 seconds (11.9-14.5)
[2019-06-05 11:03] LABS: ALBUMIN 3.9 g/dL (3.5-5.0); ALBUMIN/GLOBULIN RATIO 1.4 (0.8-2.0); ANION GAP 11.1 mmol/L (8-16); CALCIUM 9.2 mg/dL (8.4-10.2); CREATININE, SERUM 1.11 mg/dL (0.57-1.11); MAGNESIUM 1.9 MG/DL (1.3-2.1); POTASSIUM 4.1 mmol/L (3.5-5.1)
[2019-06-05 11:10] LABS: CREATINE KINASE MB 1.6 ng/mL (0-5.0)
--- NOTE | 2019-06-05 11:16 | NUR ---
attempted to verify patients home meds, patient stated that her daughter has her list but is supposed to come back to the hospital with her medication list. Educated patient that I would verify her home medications with her once her daughter returned with her medication list.
--- NOTE | 2019-06-05 11:38 | Diagnostic Imaging Report ---
CT BRAIN WO HISTORY: Fall COMPARISON: None. Technique: Noncontrast axial scans were obtained from skull base to the vertex. Coronal and sagittal reconstructions obtained from the axial data. One or more of the following dose reduction techniques were used: Automated exposure control, adjustment of the mA and/or kV according to patient size, and/or utilization of iterative reconstruction technique. DISCUSSION: Scalp/Skull: Unremarkable. Brain sulci: Mildly prominent. Ventricles: Compensatory dilatation. Extra-axial spaces: No masses or fluid collections. Carotid siphon calcifications are present. Parenchyma: Mild bilateral deep white matter hypodensity is likely chronic microvascular ischemic change. There are old lacunar infarcts in the right putamen and left thalamus. Otherwise, no masses, hemorrhage, or large vascular territory acute infarct. Dural sinuses: No abnormal densities. Sellar/Suprasellar region: Intact. Skull base: Intact. Incidental findings: Mild left sphenoid sinus mucosal thickening. IMPRESSION: 1. No acute intracranial abnormalities. 2. Mild supratentorial chronic microvascular ischemic change. Mild generalized cerebral volume loss. 3. 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 Signed by: Dr. Kwaku Vital M.D. on 06/05/2019 11:37 AM
--- NOTE | 2019-06-05 11:42 | Diagnostic Imaging Report ---
CT CERVICAL SPINE WO HISTORY: Fall COMPARISON: None. TECHNIQUE: CT of the cervical spine without contrast. Sagittal and coronal reformations were created. One or more of the following dose reduction techniques were used: Automated exposure control, adjustment of the mA and/or kV according to patient size, and/or utilization of iterative reconstruction technique. FINDINGS: Cervical lordosis is straightened. There is no significant subluxation. Mild cervicothoracic dextroscoliosis is present. No fractures, compression deformity, or destructive osseous lesions are seen. The craniocervical junction is intact. No gross spinal canal masses are seen. The paravertebral and paraspinal soft tissues are unremarkable. Mild to moderate multilevel spondylotic changes are present. There is scarring in the lung apices. Moderate bilateral carotid bulb calcified plaque is present. IMPRESSION: No acute osseous abnormalities. Mild to moderate multilevel cervical spondylosis. Signed by: Dr. Kwaku Vital M.D. on 06/05/2019 11:40 AM
[2019-06-05] MEDS ORDERED: ONDANSETRON HCL INJ 2MG/ML 2ML 2 MG/ML VIAL IV PRN (12:00)
[2019-06-05] MEDS ORDERED: PIPER-TAZ 3.375 GM / NS 50ML IV SCH (12:00)
[2019-06-05] MEDS ORDERED: PIPER-TAZ 3.375 GM 50 ML IV SCH (12:35)
--- NOTE | 2019-06-05 13:05 | Diagnostic Imaging Report ---
EXAM: CT Abdomen and Pelvis WITH intravenous contrast INDICATION: Lower abdominal pain, rectal bleeding COMPARISON: None. TECHNIQUE: Abdomen and pelvis were scanned utilizing a multidetector helical scanner from the lung base to the pubic symphysis after administration of IV contrast. Coronal and sagittal reformations were obtained. Routine protocol was performed. Scan was performed during portal venous phase. IV CONTRAST: 100mL of Isovue 370 ORAL CONTRAST: Water RADIATION DOSE: Total DLP: 625 mGy*cm Dose modulation, iterative reconstruction, and/or weight based adjustment of the mA/kV was utilized to reduce the radiation dose to as low as reasonably achievable. FINDINGS: LOWER THORAX: Mild dependent subsegmental atelectasis. Emphysematous changes. No focal consolidation. HEPATOBILIARY: Subcentimeter right hepatic hypodensity, nonspecific. No other focal liver lesions. No biliary ductal dilation. Unremarkable gallbladder. SPLEEN: No splenomegaly. PANCREAS: No focal masses or ductal dilatation. ADRENALS: No adrenal nodules. KIDNEYS/URETERS: No hydronephrosis, stones, or solid mass lesions. PELVIC ORGANS/BLADDER: Small calcified uterine fibroids. PERITONEUM / RETROPERITONEUM: No free air or fluid. LYMPH NODES: No lymphadenopathy. VESSELS: Diffuse atherosclerotic calcifications of the nonaneurysmal abdominal aorta and major branches. GI TRACT: Diverticulosis without CT evidence of diverticulitis. Mild thickening of the distal transverse colon, descending colon, and proximal sigmoid colon with mild pericolic fat stranding associated with the descending colon. No bowel obstruction. Reported history of appendectomy. BONES AND SOFT TISSUES: Diffuse osteopenia. No acute osseous injury. No suspicious lytic or blastic lesions. IMPRESSION: Mild wall thickening involving the distal transverse colon, descending colon and proximal sigmoid colon associated with mild pericolonic fat stranding can be seen in the setting of colitis. Diverticulosis without CT evidence of diverticulitis. Signed by: Marita Bronson MD on 06/05/2019 1:03 PM
[2019-06-05] MEDS ORDERED: IOPAMIDOL 370 MG/ML 200 ML INFUS..BTL INJ ONE (13:14)
[2019-06-05] MEDS ORDERED: SODIUM CHLORIDE 0.9% 50ML 50 ML ONE (13:14)
--- NOTE | 2019-06-05 13:30 | NUR ---
PT TO THE FLOOR FROM ER. VITALS WNL. PT DENIES NEEDS AT THIS TIME.
[2019-06-05 14:00] VITALS: BP 118/46
[2019-06-05] MEDS: SODIUM CHLORIDE 0.9% 1000ML 1,000 ML IV SCH ×2 (14:05→20:53)
[2019-06-05 16:45] VITALS: BP 78/54
--- NOTE | 2019-06-05 18:22 | NUR ---
CALLED OUT TO DR. WHITAKER PER DR. LÓPEZ FOR A CHANGE IN THE DIET ORDER TO CLEAR LIQUID. DR. PAYTON CALLED BACK TO CHANGE DIET.
[2019-06-05 20:00] VITALS: BP 124/55
[2019-06-05 20:32] LABS: BASOPHILS % 0.3 % (0.0-1.0); EOSINOPHILS # (AUTO) 0.1 (0.0-0.4); EOSINOPHILS % 0.9 % (0.0-6.0); HEMATOCRIT 31.7 % (34.2-44.1); HEMOGLOBIN 9.8 g/dL (12.0-16.0); LYMPHOCYTES % 15.5 % (18.0-39.1); MEAN CORPUSCULAR HEMOGLOBIN 31.2 pg (28-32); MEAN CORPUSCULAR HGB CONC 30.9 g/dL (31-35); MONOCYTES # (AUTO) 0.7 (0.2-0.8); MONOCYTES % 10.8 % (4.4-11.3); NEUTROPHILS # (AUTO) 4.7 (2.1-6.9); NEUTROPHILS % 72.3 % (38.7-80.0); PLATELET COUNT 177 x10e3/uL (140-360); RED BLOOD COUNT 3.14 x10e6/uL (3.6-5.1); RED CELL DISTRIBUTION WIDTH 14.5 % (11.7-14.4)
[2019-06-05] MEDS: ROPINIROLE HCL 0.25 MG TAB PO SCH (20:52)
[2019-06-05] MEDS: PIPER-TAZ 3.375 GM 50 ML IV SCH (20:52)
[2019-06-05] MEDS: PANTOPRAZOLE 40 MG 10ML VIAL IV SCH (20:52)
[2019-06-05 22:17] VITALS: BP 124/55
[2019-06-05 22:24] VITALS: BP 124/55
[2019-06-06] VITALS (12 sets, daily range): BP systolic 98–127; BP diastolic 47–58
--- NOTE | 2019-06-06 00:52 | History and Physical ---
CHIEF COMPLAINT: This is a 78-year-old female patient presented to the emergency room with a complaint of recurrent large amount of rectal bleeding. HISTORY OF PRESENT ILLNESS: Ms. Raquel Mcfadden is a 78-year-old female patient woke up with feeling very cold and fire kind of feeling in the abdomen and abdominal pain and the patient went to the bathroom and she fell and hit her head without loss of consciousness. She went to the bathroom and she had four episodes so far of bright red bloody stool and the patient was having mild abdominal pain. The patient did not have any significant bleeding in the past. REVIEW OF SYSTEMS: No dizziness, no syncope, but the patient had a fall and a rectal bleed and lower abdominal pain and weakness. ALLERGIES: NO KNOWN DRUG ALLERGIES. PAST MEDICAL HISTORY: The patient has a COPD, emphysema, hypertensive heart disease, restless legs syndrome, anxiety, diabetes mellitus, GERD, and hyperlipidemia. SOCIAL HISTORY: The patient was a smoker. She had quit smoking and denies using alcohol. FAMILY HISTORY: Diabetes mellitus, hypertension. REVIEW OF SYSTEMS: A detailed multisystem review of system examination has been done. MEDICATION: The patient is on a multiple medication. The patient is on Lipitor. The patient was on Plavix, Lexapro, iron, folic acid, lisinopril, pantoprazole, and pioglitazone and glimepiride and ropinirole. PHYSICAL EXAMINATION: GENERAL: She is a middle-aged female patient lying in the bed, anxious, not in any acute distress. VITAL SIGNS: Temperature 98, pulse rate is 88, respirations rate 18, blood pressure 80/56 standing. HEENT: Normocephalic. Pallor present. LUNGS: Diminished and bilateral equal fair entry. Bilateral rhonchi present. HEART: S1, S2. Regular. Systolic murmur present. ABDOMEN: Soft. Bowel sounds are present. NEUROLOGIC: No focal neurological deficit. EXTREMITIES: No edema. ADMITTING IMPRESSION/DIAGNOSES: Acute recurrent severe rectal bleeding, acute blood loss anemia, history of coronary artery disease, peripheral artery disease and carotid artery disease, diabetes mellitus with peripheral vascular disease and vasculopathy, hypertensive heart disease, anxiety, COPD. PLAN: Patient will be admitted with above diagnosis. We will treat patient with IV antibiotic and give Zofran. We will obtain GI consultation, Dr. Fenton and treat the patient with Protonix IV and we will monitor the patient hemoglobin, hematocrit every six hourly. IMAGING: The patient has a CT scan of the abdomen and pelvis done, which showed mild wall thickening of the distal transverse colon and descending colon and proximal cecum and colon has a pericolonic fat stranding with colitis and the patient with diverticulosis without evidence of diverticulitis. The patient has a brain CT was done because of fall and head injury. It did not show any acute bleeding or any acute stroke. The patient has a cervical spine CT was done, which was in mild to moderate cervical spondylosis. Chest x-ray shows some hyperinflated lung with emphysematous changes. The patient might require a blood transfusion. We will repeat hemoglobin and if it is dropped, we will transfuse blood. MD LETICIA Cain/MODL /[id number] MTDD
[2019-06-06 01:00] LABS: BASOPHILS % 0.4 % (0.0-1.0); EOSINOPHILS # (AUTO) 0.1 (0.0-0.4); EOSINOPHILS % 1.4 % (0.0-6.0); HEMATOCRIT 28.1 % (34.2-44.1); LYMPHOCYTES # (AUTO) 0.9 (1.0-3.2); LYMPHOCYTES % 16.7 % (18.0-39.1); MEAN CORPUSCULAR HEMOGLOBIN 31.4 pg (28-32); MONOCYTES # (AUTO) 0.7 (0.2-0.8); MONOCYTES % 12.4 % (4.4-11.3); NEUTROPHILS # (AUTO) 3.9 (2.1-6.9); NEUTROPHILS % 68.7 % (38.7-80.0); PLATELET COUNT 166 x10e3/uL (140-360); RED BLOOD COUNT 2.87 x10e6/uL (3.6-5.1); RED CELL DISTRIBUTION WIDTH 14.6 % (11.7-14.4)
[2019-06-06 01:01] LABS: MEAN CORPUSCULAR VOLUME 97.9 fL (81-99)
[2019-06-06] MEDS: PIPER-TAZ 3.375 GM 50 ML IV SCH ×4 (02:26→20:45)
[2019-06-06] MEDS ORDERED: SODIUM CHLORIDE 0.9% 250ML 250 ML IV ONE (03:45)
[2019-06-06 05:23] LABS: BASOPHILS % 0.4 % (0.0-1.0); EOSINOPHILS # (AUTO) 0.1 (0.0-0.4); EOSINOPHILS % 1.8 % (0.0-6.0); HEMATOCRIT 28.4 % (34.2-44.1); HEMOGLOBIN 8.9 g/dL (12.0-16.0); LYMPHOCYTES % 20.2 % (18.0-39.1); MEAN CORPUSCULAR HEMOGLOBIN 31.6 pg (28-32); MEAN CORPUSCULAR HGB CONC 31.3 g/dL (31-35); MEAN CORPUSCULAR VOLUME 100.7 fL (81-99); MONOCYTES # (AUTO) 0.6 (0.2-0.8); MONOCYTES % 11.7 % (4.4-11.3); NEUTROPHILS # (AUTO) 3.4 (2.1-6.9); NEUTROPHILS % 65.7 % (38.7-80.0); PLATELET COUNT 157 x10e3/uL (140-360); RED BLOOD COUNT 2.82 x10e6/uL (3.6-5.1); RED CELL DISTRIBUTION WIDTH 14.6 % (11.7-14.4)
[2019-06-06 05:51] LABS: ALBUMIN/GLOBULIN RATIO 1.4 (0.8-2.0); ANION GAP 8.3 mmol/L (8-16); CALCIUM 8.4 mg/dL (8.4-10.2); CREATININE, SERUM 0.98 mg/dL (0.57-1.11); POTASSIUM 4.3 mmol/L (3.5-5.1)
[2019-06-06] MEDS: [UNRECOGNIZED DRUG - OTHER] INH SCH (06:00)
[2019-06-06] MEDS ORDERED: PANTOPRAZOLE SOD 40 MG TABEC PO SCH (07:30)
[2019-06-06] MEDS ORDERED: ESCITALOPRAM OXALATE 10 MG TAB PO SCH (09:00)
[2019-06-06] MEDS ORDERED: NON-FORMULARY MEDICATION (Glimepiride 4 MG) PO SCH (09:00)
[2019-06-06] MEDS ORDERED: NON-FORMULARY MEDICATION (Ropinirole Hcl 0.5 MG) PO SCH (09:00)
[2019-06-06] MEDS: PANTOPRAZOLE 40 MG 10ML VIAL IV SCH ×2 (09:21→20:45)
[2019-06-06] MEDS: GLIMEPIRIDE 2 MG TAB PO SCH (09:21)
[2019-06-06] MEDS: PIOGLITAZONE HCL 15 MG TAB PO SCH (09:21)
[2019-06-06] MEDS: FERROUS SULFATE 325 MG TAB PO SCH (09:21)
[2019-06-06] MEDS: LORATADINE 10 MG TAB PO SCH (09:21)
[2019-06-06] MEDS: LISINOPRIL 2.5 MG TAB PO SCH (09:22)
[2019-06-06] MEDS: ATORVASTATIN 20 MG TAB PO SCH (09:22)
[2019-06-06] MEDS ORDERED: LYRICA50 MG PO (10:19)
[2019-06-06] MEDS ORDERED: FOLIC ACID0.4 MG (10:19)
[2019-06-06] MEDS ORDERED: CYMBALTA30 MG PO (10:19)
[2019-06-06] MEDS ORDERED: TRAZODONE HCL50 MG PO (10:19)
[2019-06-06] MEDS ORDERED: folic acid PO (10:21)
[2019-06-06] MEDS: DULOXETINE HCL 30 MG DELAYED RELEASE PO SCH (11:14)
[2019-06-06 11:53] LABS: BASOPHILS % 0.5 % (0.0-1.0); EOSINOPHILS # (AUTO) 0.1 (0.0-0.4); HEMATOCRIT 32.6 % (34.2-44.1); HEMOGLOBIN 10.2 g/dL (12.0-16.0); LYMPHOCYTES # (AUTO) 1.4 (1.0-3.2); LYMPHOCYTES % 21.5 % (18.0-39.1); MEAN CORPUSCULAR HEMOGLOBIN 31.6 pg (28-32); MEAN CORPUSCULAR HGB CONC 31.3 g/dL (31-35); MEAN CORPUSCULAR VOLUME 100.9 fL (81-99); MONOCYTES # (AUTO) 0.7 (0.2-0.8); MONOCYTES % 10.2 % (4.4-11.3); NEUTROPHILS # (AUTO) 4.3 (2.1-6.9); NEUTROPHILS % 65.5 % (38.7-80.0); PLATELET COUNT 192 x10e3/uL (140-360); RED BLOOD COUNT 3.23 x10e6/uL (3.6-5.1); RED CELL DISTRIBUTION WIDTH 14.5 % (11.7-14.4)
--- NOTE | 2019-06-06 13:30 | NUR ---
HGB 10.5. Paged Dr.Patel Quiroga to notify of results and to have blood transfusion clarification. Awaiting call back.
[2019-06-06] MEDS ORDERED: SODIUM CHLORIDE 0.9% 250ML 250 ML ONE (13:40)
--- NOTE | 2019-06-06 14:37 | NUR ---
aware of Hgb. See orders
[2019-06-06] MEDS ORDERED: BISACODYL 5 MG TAB EC PO NR (16:30)
[2019-06-06] MEDS: PREGABALIN 50 MG CAP PO SCH (16:58)
--- NOTE | 2019-06-06 17:35 | NUR ---
Paged Dr.V. Phelps to notify of HGB 8.9. Patient states " I am not actively bleeding at this time. I have not had bloody stools since this morning."
--- NOTE | 2019-06-06 17:40 | NUR ---
Dr.V Phelps aware of HGb 8.9 and of patient's statement "I have not not had bloody stool since this morning." Per " Go ahead and give 2 units of blood as ordered." Notified Catalina with blood bank. Per Catalina " I have to get with (pathologist) for it to be approved." Dr.V. Phelps aware of situation.
[2019-06-06] MEDS ORDERED: PEG (High)/E-LYTE SOLN 4,000 ML BTL PO NR (18:00)
--- NOTE | 2019-06-06 18:25 | NUR ---
Blood transfusion started as ordered
--- NOTE | 2019-06-06 19:10 | NUR ---
Report given to oncoming nurse of patient's status. Resting in bed. AAOX3 to time, person, place. Respirations even and unlabored. Blood transfusion in place. Tolerating well. Side rails upx2, call light within reach.
--- NOTE | 2019-06-06 19:16 | NUR ---
blood sugar 66 reported during routine check, patient given apple juice will recheck 15 minutes
[2019-06-06] MEDS: ROPINIROLE HCL 0.25 MG TAB PO SCH (20:46)
[2019-06-06] MEDS ORDERED: TRAZODONE HCL 50 MG TAB PO PRN (21:00)
--- NOTE | 2019-06-06 21:25 | NUR ---
BLOOD TRANSFUSION COMPLETED #1 UNIT GIVEN, NO S/SX OF REACTION NOTED, PATIENT RESTING COMFORTABLY IN BED, LAC# 20G INTACT PATENT
--- NOTE | 2019-06-06 22:27 | Consultation ---
DATE OF CONSULTATION: 06/06/2019 GI Consult Note REASON FOR CONSULT: Multiple episodes of hematochezia at home. HISTORY OF PRESENTING ILLNESS: This 78-year-old very pleasant female who is a patient of my associate, Dr. Chencho Oconnor. She was already scheduled to get a colonoscopy on 06/19/2019. The patient apparently has had several bowel movement those were bloody at home. She almost felt like passing out. She slummed on the floor without sustaining any serious injury. She also did not pass out. In the emergency room, she was hemodynamically stable. Not orthostatic or tachycardic. Hemoglobin was noted 10.9 that subsequently dropped down to 8.9. The patient did not receive any blood. However, her hemoglobin climbed up on its own to 10.2. The patient reports no associated abdominal pain. CT scan of the abdomen and pelvis done in the ER showed some wall thickening involving the distal transverse and descending colon as well as proximal sigmoid colon. The patient reports no upper GI symptoms. No extraintestinal complaints. REVIEW OF SYSTEMS: Twelve point system reviewed symptomatology is limited to GI system. PAST MEDICAL HISTORY: COPD, coronary artery disease, restless legs syndrome, anxiety, type 2 diabetes, reflux, hyperlipidemia. PAST SURGICAL HISTORY: Noncontributory. SOCIAL HISTORY: No smoking, alcohol, or any illicit drug use. FAMILY HISTORY: Diabetes and hypertension runs in the family. Negative for any GI or [employer]FFLE [employer]ER malignancies. ALLERGIES: NO KNOWN DRUG ALLERGIES. HOME MEDICATIONS: Atorvastatin, clopidogrel, duloxetine, citalopram, ferrous sulfate, glimepiride, lisinopril, loratadine, pantoprazole, pioglitazone, pregabalin, ropinirole, trazodone, folic acid. INPATIENT MEDICATIONS: List reviewed as per JUN. She is getting intravenous piperacillin/tazobactam along with other medications. PHYSICAL EXAMINATION: VITAL SIGNS: Temperature 97.4, pulse 77, respirations 20, blood pressure 112/53, oxygen saturation 98% on room air. GENERAL: Not in any acute distress. HEENT: Oral mucosa is moist. Anicteric sclerae. CVS: S1-S2 regular. LUNGS: Bilaterally grossly clear. ABDOMEN: Soft, nondistended, nontender. No palpable mass or hernia. Positive bowel sounds. EXTREMITIES: Warm. No leg edema. LABORATORY DATA: WBC 6.56, hemoglobin 10.2, hematocrit 32.6, and platelet count 192. Sodium 136, potassium 4.3, chloride 107, bicarb 25, BUN 21, creatinine 0.98. Liver enzymes normal. CT of the abdomen and pelvis with intravenous contrast showed mild wall thickening involving the distal transverse colon, descending colon and proximal sigmoid colon associated with mild pericolonic fat stranding can be seen in the setting of colitis. Diverticulosis without diverticulitis also seen. IMPRESSION: Recurrent episodes of hematochezia which has seized spontaneously, CT showing wall colonic wall thickening with pericolonic stranding. This goes more in favor of infectious etiology, the pattern of distribution of colitis also suggest an ischemic colitis. I do not suspect any active diverticular bleeding here. PLAN: Clear liquid diet, bowel prep tonight. Colonoscopy tomorrow. Continue supportive care. My associate, Dr. Castillo, is covering me over the weekend. He will perform the colonoscopy tomorrow. Martin Cm MD SA/KILO /[id number]
--- NOTE | 2019-06-06 23:45 | NUR ---
SECOND UNIT OF PRBC STARTED, WITNESSED BY TWO NURSES PER PROTOCOL, VITALS STABLE, AFEBRILE, BLOOD INFUSION STARTED W/O DIFFICULTY
[2019-06-07] VITALS (12 sets, daily range): BP systolic 99–129; BP diastolic 48–59
[2019-06-07] MEDS: PIPER-TAZ 3.375 GM 50 ML IV SCH ×4 (02:35→20:15)
--- NOTE | 2019-06-07 02:45 | NUR ---
BLOOD TRANSFUSION COMPLETED PATIENT TOLERATED WELL, LABS ORDERED PER PROTOCOL
[2019-06-07 05:19] LABS: BASOPHILS % 0.5 % (0.0-1.0); EOSINOPHILS # (AUTO) 0.1 (0.0-0.4); EOSINOPHILS % 1.8 % (0.0-6.0); HEMATOCRIT 34.1 % (34.2-44.1); HEMOGLOBIN 11.2 g/dL (12.0-16.0); LYMPHOCYTES # (AUTO) 1.1 (1.0-3.2); LYMPHOCYTES % 18.7 % (18.0-39.1); MEAN CORPUSCULAR HEMOGLOBIN 30.9 pg (28-32); MEAN CORPUSCULAR HGB CONC 32.8 g/dL (31-35); MEAN CORPUSCULAR VOLUME 94.2 fL (81-99); MONOCYTES # (AUTO) 0.8 (0.2-0.8); MONOCYTES % 13.1 % (4.4-11.3); NEUTROPHILS % 65.7 % (38.7-80.0); PLATELET COUNT 177 x10e3/uL (140-360); RED BLOOD COUNT 3.62 x10e6/uL (3.6-5.1); RED CELL DISTRIBUTION WIDTH 15.7 % (11.7-14.4)
[2019-06-07] MEDS: [UNRECOGNIZED DRUG - OTHER] INH SCH (06:00)
--- NOTE | 2019-06-07 06:22 | NUR ---
PATIENT TAKEN TO GI LAB VIA GURNEY, PATIENT PRIOR TO LEAVING ROOM, CONSENT IN CHART, 24 HOUR SUMMARY IN CHART, BLOOD SUGAR MONITORING PERFORMED PRIOR TO PU FOR PROCEDURE, BLOOD SUGAR WNR, PATIENT AOX4
[2019-06-07] MEDS ORDERED: DEXTROSE 5%/LACTATED RINGERS 1,000 ML IV ONE (06:32)
[2019-06-07] MEDS: GLIMEPIRIDE 2 MG TAB PO SCH (08:29)
[2019-06-07] MEDS: PIOGLITAZONE HCL 15 MG TAB PO SCH (08:30)
[2019-06-07] MEDS: DULOXETINE HCL 30 MG DELAYED RELEASE PO SCH (08:30)
[2019-06-07] MEDS: FERROUS SULFATE 325 MG TAB PO SCH (08:30)
[2019-06-07] MEDS: PANTOPRAZOLE 40 MG 10ML VIAL IV SCH ×2 (08:30→20:15)
[2019-06-07] MEDS: LORATADINE 10 MG TAB PO SCH (08:30)
[2019-06-07] MEDS: PREGABALIN 50 MG CAP PO SCH ×2 (08:31→17:00)
[2019-06-07] MEDS: FOLIC ACID 1 MG TAB PO SCH (08:31)
[2019-06-07] MEDS: ATORVASTATIN 20 MG TAB PO SCH (08:31)
[2019-06-07] MEDS: LISINOPRIL 2.5 MG TAB PO SCH (08:35)
[2019-06-07] MEDS ORDERED: PROPOFOL IV EMULSION 10 MG/ML 50 ML VIAL ONE (17:12)
--- NOTE | 2019-06-07 19:33 | NUR ---
walking rounds complete, report handed to oncoming nurse.
--- NOTE | 2019-06-07 19:39 | NUR ---
BSSR RECEIVED FROM RN ELIZABETH, PATIENT AWAKE ALERT, NO C/O SOB, PAIN OR N/V, PATIENT RESTING COMFORTABLY, JUST REQUESTING QUIET ENVIRONMENT AND SLEEP, BED IN LOWEST POSITION CALL LIGHT WITHIN REACH WILL CONTINUE TO MONITOR
[2019-06-07] MEDS: ROPINIROLE HCL 0.25 MG TAB PO SCH (20:15)
[2019-06-08] VITALS (12 sets, daily range): BP systolic 87–134; BP diastolic 42–63
[2019-06-08] MEDS ORDERED: SODIUM CHLORIDE 0.9% 250ML 250 ML IV ONE
[2019-06-08] MEDS ORDERED: SODIUM CHLORIDE 0.9% 250ML 250 ML IV STA (00:12)
--- NOTE | 2019-06-08 00:55 | NUR ---
PATIENT ROUTINE VITALS, HYPOTENSION NOTED, 87/42, PT STATES THAT HER REGULAR BLOOD PRESSURE, MD Kimber CHANDLER MD [facility] COVERING RETURN PAGE, INFORMED OF PATIENT BEING HYPOGLYCEMIC TODAY SEVERAL TIME, BUT CURRENTLY BLOOD SUGAR AT 1900 WAS 90, AND CURRENTLUY SBP 87/42, HE ORDERED START TELEMETRY MONITORING, HOLD LISINOPRIL 2.5MG DAILY FOR NOW, AND BOLUS NS 250CC STAT, AND MONITOR VITALS
[2019-06-08] MEDS: PIPER-TAZ 3.375 GM 50 ML IV SCH ×4 (03:26→20:27)
--- NOTE | 2019-06-08 04:31 | NUR ---
PATIENT AWAKE ALERT, ASSIST UP OOB FOR BRP, GAIT STEADY, SAFETY MAINTAINED ASSISTED BACK TO BED, CALL LIGHT WITHIN REACH
[2019-06-08 05:09] LABS: BASOPHILS % 0.4 % (0.0-1.0); EOSINOPHILS # (AUTO) 0.2 (0.0-0.4); EOSINOPHILS % 4.2 % (0.0-6.0); HEMOGLOBIN 10.6 g/dL (12.0-16.0); LYMPHOCYTES # (AUTO) 1.6 (1.0-3.2); LYMPHOCYTES % 35.9 % (18.0-39.1); MEAN CORPUSCULAR HEMOGLOBIN 31.6 pg (28-32); MEAN CORPUSCULAR HGB CONC 33.1 g/dL (31-35); MEAN CORPUSCULAR VOLUME 95.5 fL (81-99); MONOCYTES # (AUTO) 0.6 (0.2-0.8); MONOCYTES % 12.9 % (4.4-11.3); NEUTROPHILS # (AUTO) 2.1 (2.1-6.9); NEUTROPHILS % 46.4 % (38.7-80.0); PLATELET COUNT 153 x10e3/uL (140-360); RED BLOOD COUNT 3.35 x10e6/uL (3.6-5.1); RED CELL DISTRIBUTION WIDTH 15.7 % (11.7-14.4)
[2019-06-08] MEDS: [UNRECOGNIZED DRUG - OTHER] INH SCH (06:00)
[2019-06-08] MEDS: PREGABALIN 50 MG CAP PO SCH ×2 (08:02→17:00)
[2019-06-08] MEDS: LORATADINE 10 MG TAB PO SCH (08:02)
[2019-06-08] MEDS: FOLIC ACID 1 MG TAB PO SCH (08:02)
[2019-06-08] MEDS: ATORVASTATIN 20 MG TAB PO SCH (08:03)
[2019-06-08] MEDS: FERROUS SULFATE 325 MG TAB PO SCH (08:03)
[2019-06-08] MEDS: DULOXETINE HCL 30 MG DELAYED RELEASE PO SCH (08:03)
[2019-06-08] MEDS: PANTOPRAZOLE 40 MG 10ML VIAL IV SCH ×2 (08:03→20:27)
--- NOTE | 2019-06-08 19:24 | NUR ---
walking rounds complete, report handed to oncoming nurse.
[2019-06-08] MEDS: ROPINIROLE HCL 0.25 MG TAB PO SCH (20:27)
[2019-06-08] MEDS ORDERED: SODIUM CHLORIDE 0.9% 250ML 250 ML ONE (22:18)
[2019-06-09] MEDS: PIPER-TAZ 3.375 GM 50 ML IV SCH ×2 (02:20→08:03)
[2019-06-09 04:15] VITALS: BP 140/85
[2019-06-09 05:45] LABS: BASOPHILS % 0.7 % (0.0-1.0); EOSINOPHILS # (AUTO) 0.2 (0.0-0.4); EOSINOPHILS % 4.6 % (0.0-6.0); HEMATOCRIT 33.2 % (34.2-44.1); HEMOGLOBIN 10.6 g/dL (12.0-16.0); LYMPHOCYTES # (AUTO) 1.4 (1.0-3.2); LYMPHOCYTES % 33.1 % (18.0-39.1); MEAN CORPUSCULAR HEMOGLOBIN 30.5 pg (28-32); MEAN CORPUSCULAR HGB CONC 31.9 g/dL (31-35); MEAN CORPUSCULAR VOLUME 95.7 fL (81-99); MONOCYTES # (AUTO) 0.6 (0.2-0.8); MONOCYTES % 13.4 % (4.4-11.3); NEUTROPHILS % 48.2 % (38.7-80.0); PLATELET COUNT 174 x10e3/uL (140-360); RED BLOOD COUNT 3.47 x10e6/uL (3.6-5.1); RED CELL DISTRIBUTION WIDTH 14.8 % (11.7-14.4)
[2019-06-09 05:56] LABS: ALBUMIN/GLOBULIN RATIO 1.3 (0.8-2.0); ANION GAP 9.8 mmol/L (8-16); CALCIUM 8.5 mg/dL (8.4-10.2); CREATININE, SERUM 0.92 mg/dL (0.57-1.11); POTASSIUM 3.8 mmol/L (3.5-5.1)
[2019-06-09] MEDS: [UNRECOGNIZED DRUG - OTHER] INH SCH (06:00)
--- NOTE | 2019-06-09 07:00 | NUR ---
PATIENT IS ALERT AND IN STABLE CONDITION WITH NO S/S OF RESPIRATORY DISTRESS. NO PAIN VOICED. TELEMETRY APPLIED. CALL LIGHT IS WITHIN REACH, PATIENT INSTRUCTED TO CALL FOR ASSISTANCE NEEDED.
[2019-06-09 08:02] VITALS: BP 135/60
[2019-06-09] MEDS: ATORVASTATIN 20 MG TAB PO SCH (08:03)
[2019-06-09] MEDS: FERROUS SULFATE 325 MG TAB PO SCH (08:03)
[2019-06-09] MEDS: PANTOPRAZOLE 40 MG 10ML VIAL IV SCH (08:03)
[2019-06-09] MEDS: FOLIC ACID 1 MG TAB PO SCH (08:03)
[2019-06-09] MEDS: DULOXETINE HCL 30 MG DELAYED RELEASE PO SCH (08:03)
[2019-06-09] MEDS: LORATADINE 10 MG TAB PO SCH (08:03)
[2019-06-09] MEDS: PREGABALIN 50 MG CAP PO SCH (08:03)
[2019-06-09 09:00] VITALS: BP 135/60
--- NOTE | 2019-06-09 12:04 | NUR ---
PATIENT DISCHARGE HOME-PATIENT OFF THE UNIT AT 1156 PER WHEELCHAIR ACCOMPANIED BY RN TO THE PATIENT'S PERSONAL VEHICLE. PATIENT IN STABLE CONDITION WITH NO S/S OF RESPIRATORY DISTRESS. NO PAIN VOICED. IV REMOVED WITH TIP INTACT. DISCHARGE TEACHING, INSTRUCTIONS, AND MEDICATIONS GIVEN TO THE PATIENT. ALL PERSONAL ITEMS TAKEN WITH THE PATIENT AND HER DAUGHTER.
[2019-06-09 12:49] VITALS: BP 142/73
--- NOTE | 2019-06-10 06:50 | Discharge Summary ---
This is a 78-year-old female patient of mine, presented with a complaint of recurrent severe rectal bleeding. ADMITTING IMPRESSION/DIAGNOSES: Lower gastrointestinal bleeding, acute blood loss anemia, diabetes mellitus, hypertension, coronary artery disease, peripheral artery disease, carotid disease, chronic obstructive pulmonary disease, hypertensive heart disease, arthritis, and anemia secondary to the gastrointestinal bleeding. HOSPITAL COURSE SUMMARY: The patient was admitted with above diagnoses. The patient had a type and screen done. The patient had also syncopized because of the bleeding and had injured her head. So, on emergency room arrival, the CT scan of the head was done, which was negative for any bleeding. The patient had a CT scan of the abdomen done, which was negative for any mass. The patient had a cervical spine CT done, which was negative for any acute injury. A CT scan of the abdomen, the patient was showing some colitis. The patient had a GI consultation done and Dr. Cm had seen the patient, and colonoscopy was done and found to have internal hemorrhoids, diverticulosis, and colitis. The patient was given 2 units of packed RBCs. The patient's bleeding had stopped. The patient's Plavix and aspirin were discontinued. Now upon stabilization, the patient will be discharged home on oral antibiotic, Augmentin, for 7 days and lactobacillus. The patient was advised to follow with me as outpatient as well as GI and Cardiology. MD LETICIA Cain/MODL /[id number]
== END 2019-06-09 11:56 | disposition home or self-care (01) | DRG 378 ==
LOC: ER 09:12 → ERHOLD 11:55 → OBSVTOIN 11:59 → MED/SURG2 13:32
PROVIDERS: ADMIT Internal Medicine; ATTEND Internal Medicine
PROC: 30233N1 Transfusion of Nonautologous Red Blood Cells into Peripheral Vein, Percutaneous Approach (ICD-10-PCS; 2019-06-06)
PROC: 0DBG8ZX Excision of Left Large Intestine, Via Natural or Artificial Opening Endoscopic, Diagnostic (ICD-10-PCS; principal; 2019-06-07 07:00)
DX: K57.31 Diverticulosis of large intestine without perforation or abscess with bleeding (principal); D62 Acute posthemorrhagic anemia; M31.9 Necrotizing vasculopathy, unspecified; I25.10 Atherosclerotic heart disease of native coronary artery without angina pectoris; I73.9 Peripheral vascular disease, unspecified; J44.9 Chronic obstructive pulmonary disease, unspecified; I11.9 Hypertensive heart disease without heart failure; W19.XXXA Unspecified fall, initial encounter; K52.9 Noninfective gastroenteritis and colitis, unspecified; K64.8 Other hemorrhoids
CPT/HCPCS: 36415; 45378; 45380; 70450; 71045; 72125; 74177; 80053; 82550; 82553; 82948; 83735; 83880; 84484; 85014; 85018; 85025; 85610; 85730; 86850; 86900; 86920; 88305; 93005; 99284; J2405; J2543; J7030; J7050; P9016; Q9967

== ENCOUNTER → 2019-08-05 | Outpatient (CLI) | payer MEDICARE ==
[~2019-08-05] MED LIST changes: +CYMBALTA30 MG PO; +FOLIC ACID0.4 MG; +LYRICA50 MG PO; +TRAZODONE HCL50 MG PO; +folic acid PO
--- NOTE | 2019-08-05 11:39 | Diagnostic Imaging Report ---
EXAM: MANDIBLE COMP 4+VIEW DATE: 08/05/2019 10:20 AM INDICATION: Right-sided jaw pain COMPARISON: None FINDINGS: There is no evidence for acute fracture or dislocation. No focal lytic or blastic abnormality is identified. No significant periodontal lucency is identified. Surrounding soft tissues are unremarkable without radiopaque foreign body. IMPRESSION: No acute radiographic abnormality identified within the mandible. Signed by: Dr. Shaw Grande MD on 08/05/2019 11:36 AM
== END ==
LOC: RAD 09:57
PROVIDERS: ATTEND Internal Medicine
DX: R68.84 Jaw pain (principal); M27.40 Unspecified cyst of jaw
CPT/HCPCS: 70110

== ENCOUNTER → 2019-08-18 | Outpatient (CLI) | payer MEDICARE ==
[~2019-08-18] MED LIST changes: +IOPAMIDOL 370 MG/ML 200 ML INFUS..BTL INJ ONE; +SODIUM CHLORIDE 0.9% 50ML 50 ML ONE
[2019-08-18 12:48] LABS: CREATININE, SERUM 0.92 mg/dL (0.57-1.11)
--- NOTE | 2019-08-19 12:26 | Diagnostic Imaging Report ---
Examination:CT SOFT TISSUE NECK WITH CONTRAST History: Right jaw mass. Comparison studies: None Technique: Axial images from the skull base to the thoracic inlet Coronal and sagittal reformatted images. Dose modulation, iterative reconstruction, and/or weight based adjustment of the mA/kV was utilized to reduce the radiation dose to as low as reasonably achievable. Intravenous contrast: 100mL of Isovue 300. Findings: Soft tissues: No abnormalities. Aerodigestive tract: No abnormality. Lymph nodes: No radiographically significant adenopathy. Vessels: Arteries and veins are patent. Thyroid gland: Normal in size and homogeneous. Submandibular glands: Normal in size and homogeneous. Parotid glands: Normal in size and homogeneous. Orbits: No abnormalities. Paranasal sinuses: Retention cysts in the left maxillary sinus. Temporal bones: No abnormalities. Skull base and facial bones: Diffuse sclerosis of the right mandibular body, right parasymphyseal and symphyseal regions. There is associated mild right perimandibular soft tissue swelling. Cervical spine: No disc bulge or herniation or foraminal or canal stenosis. Visualized lung apices: Bilateral apical pleural thickening. IMPRESSION: Diffuse sclerosis of the right mandible which is unchanged from recent x-ray and could be related to prior infections/dental caries and is associated with mild right perimandibular soft tissue swelling. Signed by: Dr. Yoon Walden M.D. on 08/19/2019 12:23 PM
== END ==
LOC: CT 11:54
PROVIDERS: ATTEND Otolaryngology
DX: R68.84 Jaw pain (principal); M54.2 Cervicalgia
CPT/HCPCS: 36415; 70491; 82565; 84520; Q9967

== ENCOUNTER → 2020-02-25 | Outpatient (CLI) | payer MEDICARE ==
[~2020-02-25] MED LIST changes: -IOPAMIDOL 370 MG/ML 200 ML INFUS..BTL INJ ONE; -SODIUM CHLORIDE 0.9% 50ML 50 ML ONE
== END ==
LOC: RESP 13:24
PROVIDERS: ATTEND Internal Medicine
DX: J44.9 Chronic obstructive pulmonary disease, unspecified (principal)
CPT/HCPCS: 94060; 94664; 94727; 94729

== ENCOUNTER → 2020-05-04 | Outpatient (CLI) | payer MEDICARE, OTHER | LOC: MAMMO 10:21 | PROVIDERS: ATTEND Internal Medicine | DX: Z12.31 Encounter for screening mammogram for malignant neoplasm of breast (principal); M47.27 Other spondylosis with radiculopathy, lumbosacral region | CPT/HCPCS: 72110; 72220; 77067 ==